=== PATIENT | female | born 1945 | race Caucasian/White ===

== ENCOUNTER 2020-06-18 10:46 | Observation (INO) ==
--- NOTE | 2020-05-17 08:55 | PAT Medication Instructions ---
Medication Instructions Date of Service May 17, 2020 Home Medications aspirin [Aspirin Low Dose] 81 mg PO QAM atorvastatin 40 mg PO QAM enalapril maleate 10 mg PO PM metformin 1,000 mg PO BID acyclovir 400 mg PO BID lenalidomide [Revlimid] 10 mg PO UD ASK your prescriber and surgeon lenalidomide [Revlimid] 10 mg PO UD DO NOT take the morning of surgery metformin 1,000 mg PO BID Take morning of surgery With a small sip of water, OTHERWISE NOTHING TO EAT OR DRINK AFTER MIDNIGHT: aspirin [Aspirin Low Dose] 81 mg PO QAM (unless told otherwise by surgeon) atorvastatin 40 mg PO QAM acyclovir 400 mg PO BID Take evening before surgery enalapril maleate 10 mg PO PM metformin 1,000 mg PO BID acyclovir 400 mg PO BID Other Notes If you have any questions please call us at [phone] or [phone] or [phone] or [phone]
--- NOTE | 2020-05-28 11:54 | Anesthesiology Consultation ---
Date of Service May 28, 2020 Assessment & Plan (1) Encounter for pre-operative examination: COVID Status: As of 05/28 assessment, patient denies travel to endemic area, known exposure/sick contacts, or symptoms of COVID19. Patient instructed that they and their household members must follow strict social distancing guidelines, wear a mask in public and avoid travel/events/gatherings for 14 days prior to surgery. Preoperative COVID19 testing to be completed prior to surgery per surgeon's arrangements (06/14). Patient made aware to self-isolate as much as possible between COVID testing and surgery. BSG AM DOS Chart Review Chart Review: Acceptable Risk for Surgery and Patient seen in Pre Admission Testing Teaching & Discussion Instructed NPO after midnight before surgery, except medications with 15 cc of water. Medication instructions provided according to the PAT guidelines. History Surgery Operation Date: 06/18/20 07:30 Proposed Procedures p Left Total Knee Arthroplasty - Aaron Machado MD Height/Weight Height: 5 ft 8.25 in Weight: 71.5 kg Allergies Allergy/AdvReac Type Severity Reaction Status Date / Time No Known Allergies Allergy Verified 05/02/20 14:28 Medications Home Medications Medication Instructions Recorded Confirmed Last Taken aspirin [Aspirin Low Dose] 81 mg PO QAM 09/30/18 05/02/20 Unknown atorvastatin 40 mg PO QAM 09/30/18 05/02/20 Unknown enalapril maleate 10 mg PO PM 09/30/18 05/02/20 Unknown metformin 1,000 mg PO BID 09/30/18 05/02/20 Unknown acyclovir 400 mg PO BID 05/02/20 05/02/20 Unknown lenalidomide [Revlimid] 10 mg PO UD 05/02/20 05/02/20 Unknown Past Medical History Medical History Diabetes mellitus, type 2 borderline DJD (degenerative joint disease) of knee Hx of cervical cancer s/p cryoablation HX: breast cancer s/p lumpectomy radiation Hyperlipidemia Hypertension Left knee DJD Multiple myeloma Following with [facility] heme/onc, on chemotherapy (Revlimid). Exercise / Class Metabolic Activity II 4-5 Yardwork/Stairs/Walk up hill (Denies CP or SOB with 1 FOS, just knee pain) Past Surgical History Surgical History History of colonoscopy History of cryosurgery For cervical cancer Hx of breast lump removal Hx of section Past Anesthesia History No Hx of Anesthesia Complications and No Family Hx of Anesthesia Complications (other than mother having delerium/psychosis with versed) History of PONV No Hx of PONV and No Hx of Motion Sickness Social History Smoking Status: Former smoker tobacco type: cigarettes Do You Dip or Chew Tobacco: No Smoking End Date: Hx Alcohol Use: Yes Alcohol type: wine alcohol intake frequency: a few times a week Hx Substance Use: No substance use type: does not use Review of Systems Pt denies any recent chest pain, shortness of breath, palpitations, cough, fev er, UR. + occasional reflux Physical Exam Vital Signs BP: 106/66 P: 78bpm SPO2: 98% RA T: 98.1 F R: 16 ENMT Mouth: + dental bridge (lower L front between canine and incisor) and + dental restorations (crowns and bridge); no chipped teeth and no loose teeth Thyromental Distance: > or= 3.5 Finger Breadths Mallampati Class: I Neck normal visual inspection; neck extension not limited Respiratory normal respiratory effort, lungs clear to auscultation Cardiovascular RRR, no murmur, no edema Testing Laboratory Results 05/28/20 12:00 05/28/20 12:00 PT 9.7 Seconds (9.0-12.0) 05/28/20 12:00 INR 1.0 (0.9-1.1) 05/28/20 12:00 APTT 23.4 Seconds (21.0-31.0) 05/28/20 12:00 Hemoglobin A1c 6.9 % (4.5-5.6) H 05/28/20 12:00 Blood Type O Positive 05/28/20 12:00 Antibody Screen NEGATIVE 05/28/20 12:00 Electrocardiogram Date: 05/28/20 Sinus rhythm at 63 bpm with premature atrial complexes. Compared with EKG of 10/04/2018, PACs are now present. Chest X-Ray Date: 05/28/20 Findings: + NAD
[2020-05-28 12:18] LABS: Basophils # (auto) 0.05 K/uL (0-0.2); Basophils % (auto) 1.1 %; Eosinophils # (auto) 0.13 K/uL (0-0.5); Eosinophils % (auto) 2.7 %; Hematocrit (blood only) 40.8 % (37-47); Hemoglobin 13.7 g/dL (12.0-16.0); Immature Granulocytes # (auto) 0.05 K/uL (0.00-0.02); Immature Granulocytes % (auto) 1.1 %; Lymphocytes # (auto) 1.08 K/uL (1.2-3.4); Lymphocytes % (auto) 22.8 %; Mean Corpuscular Hemoglobin 31.4 pg (25-34); Mean Corpuscular Hgb Conc 33.6 g/dL (32-36); Mean Corpuscular Volume 93.6 fL (80-100); Mean Platelet Volume 10.6 fL (7.4-10.4); Monocytes # (auto) 0.26 K/uL (0.11-0.59); Monocytes % (auto) 5.5 %; Neutrophils # (auto) 3.16 K/uL (1.4-6.5); Neutrophils % (auto) 66.8 %; Platelet Count 213 K/uL (130-400); RDW Coefficient of Variation 13.7 % (11.5-14.5); RDW Standard Deviation 47.3 fL (36.4-46.3); Red Blood Count 4.36 M/uL (4.2-5.4); White Blood Count 4.73 K/uL (4.8-10.8)
--- NOTE | 2020-05-28 12:37 | XRay Report ---
XR chest Pre-admission PA/Lat CLINICAL HISTORY: Preoperative chest COMPARISON STUDY: October 04, 2018 FINDINGS: The cardiac and mediastinal contours are normal. There is no evidence of focal pulmonary co nsolidation. There is no evidence of failure. No pleural effusions are visualized.[ IMPRESSION: No active disease in the chest. ACT 112: Negative or not required by law. Electronically signed by: Drake Sabillon M.D. 05/28/2020 12:35 PM
[2020-05-28 12:40] LABS: Partial Thromboplastin Ratio 0.9; Partial Thromboplastin Time 23.4 Seconds (21.0-31.0); Prothrombin Time 9.7 Seconds (9.0-12.0)
[2020-05-28 12:53] LABS: BUN Creatinine Ratio 19.4 (10-20); Calcium 8.8 mg/dl (8.5-10.1); Creatinine Clr Calc Pharmacy 59.3 ml/min; Est GFR (African American) 77.7; Potassium 3.9 mmol/L (3.5-5.1)
--- NOTE | 2020-05-28 14:42 | Electrocardiogram Report ---
Test Reason : Blood Pressure : / mmHG Vent. Rate : 063 BPM Atrial Rate : 063 BPM P-R Int : 142 ms QRS Dur : 086 ms QT Int : 416 ms P-R-T Axes : 086 083 073 degrees QTc Int : 425 ms Sinus rhythm with Premature atrial complexes Otherwise normal ECG When compared with ECG of 04-OCT-2018 12:40, Premature atrial complexes are now Present Confirmed by Vinicio Perez ([id number]) on 05/28/2020 2:42:38 PM Referred By: Aaron Machado Confirmed By:Vinicio Perez
[2020-05-29 06:07] LABS: Estimated Average Glucose 151 mg/dl; Hemoglobin A1C 6.9 % (4.5-5.6)
[~2020-06-18 10:46] MED LIST: ACETAMINOPHEN 500 MG TAB PO SCH; BUPIVACAINE 0.5 % 5 MG/1 ML MPF 30ML VIAL ONE; BUPIVACAINE 0.5 % 5 MG/1 ML PF 10ML VIAL ONE; BUPIVACAINE LIPOSOME/PF 266 MG, BUPIVACAINE/EPINEPHRINE 50 ML, SODIUM CHLORIDE 0.9% 30 ... INFIL SCH; FAMOTIDINE 20 MG TAB PO SCH; GABAPENTIN 300 MG CAP PO SCH; LR 500ML BOLUS, THEN 15ML/HR IV SCH; LR 60ML/HR IV SCH; METOCLOPRAMIDE HCL 10 MG TABLET PO SCH; TRANEXAMIC ACID 1,000 MG **IV Intra-op IV SCH; ceFAZolin 2000MG 2,000 MG/15 ML SYR IV SCH
--- NOTE | 2020-06-18 11:10 | History & Physical Bridge Note ---
Date of Service June 18, 2020 History & Physical Bridge Note I have examined the patient, reviewed the History & Physical and in the interval since the performance of the History & Physical I have noted the following changes of clinical significance: no changes noted
[2020-06-18] MEDS ORDERED: LIDOCAINE HCL 2% 2 ML VIAL/AMP(20MG/ML) INFIL ONE (11:47)
[2020-06-18] MEDS ORDERED: ONDANSETRON INJ 2 MG/ML 2 ML VIAL ONE (11:47)
[2020-06-18] MEDS ORDERED: GLYCOPYRROLATE 0.2 MG/ML VIAL ONE (11:47)
[2020-06-18] MEDS ORDERED: PROPOFOL IV EMULSION 10 MG/ML 20 ML VIAL IV ONE ×2 (11:47→14:47)
[2020-06-18] MEDS ORDERED: MIDAZOLAM HCL 1 MG/ML 2ML VIAL ONE (11:47)
[2020-06-18] MEDS ORDERED: KETAMINE 50 MG/5 ML SYRINGE ONE (11:48)
[2020-06-18] MEDS ORDERED: ePHEDrine sulfate 50 MG/ML AMP IV PRN (12:11)
[2020-06-18] MEDS ORDERED: ATROPINE SULFATE 0.1 MG/ML 10ML SYR IV PRN (12:11)
[2020-06-18] MEDS ORDERED: ONDANSETRON INJ 2 MG/ML 2 ML VIAL IV PRN ×2 (12:11→17:31)
[2020-06-18] MEDS ORDERED: fentaNYL citrate 100 MCG/2 ML VIAL IV PRN (12:11)
[2020-06-18] MEDS ORDERED: EPINEPHrine INJ 1 MG/ML AMP ONE (13:09)
[2020-06-18] MEDS ORDERED: BUPIVACAINE 0.25% 30 ML VIAL ONE (13:09)
[2020-06-18] MEDS ORDERED: BUPIVACAINE LIPOSOME 1.3% 266 MG/20 ML VIAL ONE (13:09)
[2020-06-18] MEDS ORDERED: SODIUM CHLORIDE 0.9% PF 50 ML VIAL ONE (13:10)
[2020-06-18] MEDS ORDERED: BUPIVACAINE 0.5 % 5 MG/1 ML PF 10ML VIAL ONE (13:31)
[2020-06-18] MEDS ORDERED: VANCOMYCIN HCL 1000MG/20ML VIAL ONE (13:39)
--- NOTE | 2020-06-18 15:36 | Operative Report ---
Post Operative Report Pre & Post Diagnosis Operation Date: 06/18/20 12:45 Pre-Op Diagnosis: Left Knee Degenerative Joint Disease Post-Op Diagnosis: Left Knee Degenerative Joint Disease I identified the patient and participated in the time-out.: Yes Procedure Operation Date: 06/18/20 12:45 Actual Procedures p Left Total Knee Arthroplasty(Left) - Aaron Machado MD Surgeon Aaron Machado MD Tool Profiling Machine Set Up Operator PHILIP Mathews Estimated Blood Loss 50 Findings Consistent with Post-Op Diagnosis Operative findings real advanced left knee DJD. She had extensive grade 4 [id number] disease in the medial compartment with large osteophytes medially. Some moderate patellofemoral disease. The lateral compartments pretty well spared. She did have a significant flexion contracture preoperatively about 10 to 15 degrees. Large knee joint effusion. Fluids 1700 cc Specimens Left knee sent for pathology. Drains None. Anesthesia Type Spinal MAC Complications none Disposition Accompanied Patient To Recovery: No Disposition: Recovery Room Indications Patient is a 74-year-old female with a long history of a left knee pain discomfort describes gotten worse over time. She failed conservative measures. She was actually scheduled for knee replacement a year ago but had to cancel as she was diagnosed with multiple myeloma. She is now been treated for this in remission. She is elected proceed with total knee arthroplasty. Description of Procedure Operative implants consist of: 1. Biomet Vanguard size 62.5 left posterior stabilized femoral component. 2. Biomet size 71 tibial tray. 3. 12 mm posterior stabilized polyethylene insert. 4. 28 x 8 all polypatella. The patient was taken to the operating room, identified, and placed on the operating table supine position but all contact areas were properly padded. IV antibiotics tried by anesthesia team. A spinal anesthetic and abductor canal block had provided holding area. Nelson catheter was placed in sterile fashion. Left thigh tourniquet was then placed in the left lower extremities and prepped and draped in usual sterile fashion. Left leg was elevated exsanguinated with use of an Esmarch and tourniquet placed at 3 mmHg. An anterior approach to the left knee was then performed through longitudinal incision centered over the patella. Sharp dissection got through subcutaneous tissue down the extensor mechanism. Medial parapatellar arthrotomy incision was made. Some subperiosteal dissection was carried out medially. The fat pad was resected from each patella tendon. Lateral patellofemoral ligament was released. Patella was subluxated laterally and the knee was flexed. The osteophytes were taken off distal femur. The ACL and PCL were then released from distal femur and the tibia subluxated anteriorly. External tibial alignment jig was then placed in the interface the tibia and adjusted 14 mm medially. Proximal tibial cut was made to move out 2 to 3 mm of bone from most efficient aspect medial till plateau. Some osteophytes taken off medial and posterior medially. I did release some the posterior medial side in order to decrease her flexion contracture. The tibia was then sized to a size 71. Attention drawn the femur. The distal femur was entered with a sharp drop with intramedullary canal was suction. A left 5 degree valgus cutting guide was placed in the distal femoral cutting block was pinned in place. Distal femoral cut was made to take an additional 3 mm of bone off distal femur. The femur was then sized to a size 62.5. The AP cutting block was pinned parallel to the epicondylar axis which was 5 degrees of external rotation. The anterior cut, anterior chamfer, posterior cut, posterior chamfer cuts were made. The box cutting guide was placed in just slight lateral box cut was made. The knee was flexed. The remnants of the medial lateral menisci were excised. The osteophyte taken off the posterior aspect the femur. A trial femoral component was placed. Tibial tray was pinned in maximum external rotation and the drill and stem punch used to create defect in proximal tibia for the tibial tray. Knee was then trialed and the 12 mm insert fit most appropriately. I left this just a little bit loose as I wanted to make sure she got full extension. Attention drawn the patella. Patella was cleaned of all soft tissue. Patella thickness measured 18 mm and cut down to 12. Sized to a size 28 patella. The lug holes were drilled for the 28 patella. The lateral osteophyte was removed. Patella button was placed. Knee was taken through range of motion patella tracked nicely with no thumbs test. Attention drawn to placing permanent components. All trial components were removed. Bone plug was placed in the distal femur limit blood loss put a double batch [place] G cement was mixed. I did add an ad ditional gram of vancomycin to her cement due to her immunocompromise status due to her treatment for multiple myeloma. A [employer] size 62.5 posterior stabilized femoral component, size 71 tibial tray, 12 mm posterior stabilized polyethylene insert, 28 x 8 all polypatella then cemented in place. Knee was brought out into full extension total cement hardened. Final cement check was then performed. Pericapsular tissues were injected with total 100 cc of combination of 20 cc of Exparel, 30 cc normal saline, 50 cc of quarter percent Marcaine with epinephrine. Patient did receive 1 g tranexamic acid. The tourniquet was then let down for total tourniquet time of 60 minutes. Hemostasis assured use electrocautery. The extensor mechanism closed with combination of #1 PDS suture #1 Vicryl suture in [id number] fashion. Extensor mechanism checked found to be intact the subcutaneous tissue was then closed with 2 Dexon suture in a buried interrupted fashion skin was closed skin triny. Leg was then cleaned dried a sterile dressing was Xeroform, 4 x 4's, sterile cast padding, Clifford bandage were applied. Patient then transferred to the recovery in stable condition. Patient tolerated procedure well and there are no complications. Nehemiah Mathews, my physician bilingual office assistant, was present for the entire procedure. His assistance was essential and required for appropriate patient positioning, prepping and draping, surgical exposure, performing the technical details of the operation, placement the implants, closure of the wound, and placement of the sterile bandage. I attest to the content of the Intraoperative Record and any orders documented therein. Any exceptions are noted below.
--- NOTE | 2020-06-18 15:44 | XRay Report ---
LEFT KNEE 2 VIEWS History: Left total knee arthroplasty. Degenerative arthritis. Postop. FINDINGS: The patient is status post a left total knee arthroplasty. The hardware is intact. No fract ure or dislocation. Skin triny are in place. IMPRESSION: Left total knee arthroplasty. No evidence for hardware complication. ACT 112: Negative or not required by law. Electronically signed by: Margarito Short M.D. 06/18/2020 3:43 PM
--- NOTE | 2020-06-18 16:13 | Anesthesiology Progress Note ---
Date of Service June 18, 2020 Anesthesia Post Procedure Vital Signs Vital Signs: Temp Pulse Pulse Resp BP Pulse Ox 06/18/20 16:05 67 12 119/62 95 06/18/20 15:55 65 14 115/62 95 06/18/20 15:45 69 14 101/77 96 06/18/20 15:35 71 20 103/56 L 96 06/18/20 15:29 36.9 C 83 12 106/54 L 96 06/18/20 11:38 36.5 C 69 18 130/69 98 Transfer of Care Handoff Completed per policy Notes Mental Status: alert / awake / arousable Patient Amnestic to Procedure: Yes Nausea / Vomiting: adequately controlled Pain: adequately controlled Airway Patency, RR, SpO2: stable & adequate BP & HR: stable & adequate Hydration State: stable & adequate Neuraxial Anesthesia: was administered and sensory block is resolving Anesthetic Complications: no major complications apparent and Pt Satisfied with anesthetic care
[2020-06-18] MEDS ORDERED: GLUCOSE 10 TABS/TUBE PO PRN (17:31)
[2020-06-18] MEDS ORDERED: CARBOHYDRATES FOR HYPOGLYCEMIA PO PRN (17:31)
[2020-06-18] MEDS ORDERED: METOCLOPRAMIDE HCL INJ 5 MG/ML 2 ML VIAL IV PRN (17:31)
[2020-06-18] MEDS ORDERED: GLUCAGON FOR INJ 1 MG VIAL SQ PRN (17:31)
[2020-06-18] MEDS ORDERED: traMADol HCL 50 MG TABLET PO PRN (17:31)
[2020-06-18] MEDS ORDERED: HYDROmorphone INJ 0.5 MG/0.5 ML SYR IV PRN (17:31)
[2020-06-18] MEDS ORDERED: DEXTROSE 50% 50 ML SYRINGE IV PRN (17:31)
[2020-06-18] MEDS ORDERED: ALUMINUM/MAGNESIUM SUSP 30 ML UDC PO PRN (17:31)
[2020-06-18] MEDS ORDERED: MAGNESIUM HYDROXIDE SUSP 30 ML UDC PO PRN (17:31)
[2020-06-18] MEDS ORDERED: NALOXONE HCL 0.4 MG/1 ML VIAL/CARP IV PRN (17:31)
[2020-06-18] MEDS ORDERED: bisacodyL 10 MG SUPP PR PRN (17:31)
[2020-06-18] MEDS ORDERED: GLUCOSE 40% GEL 15 GM TUBE PO PRN (17:31)
[2020-06-18] MEDS ORDERED: PHARMACY GLYCEMIC MGMT CONSULT PRN (17:37)
--- NOTE | 2020-06-18 17:42 | Pharmacy Report ---
Glycemic Ortho Sign Off Note - Date of Service June 18, 2020 - Scope Glycemic Pharmacist consulted for glycemic control and to write orders per [facility] inpatient glycemic control protocol. - Objective Accuchecks BSG (last 24hrs):: 06/18/20 06/18/20 11:25 15:30 POC Glucose 122 H 94 HbA1c:: Hemoglobin A1c 6.9 % (4.5-5.6) H 05/28/20 12:00 - Assessment * Pt is maintained on oral antidiabeticagent[s]as anoutpatient with excellent control per recent A1c * Oral agents are not recommended for inpatient use d/t drug interactions, changing PO intake, and difficulty titrating for acute hyper/hypoglycemia. * Recommended regimen for inpatient use is SQ insulin * Low stress weight based insulin dosing appropriate since patient has minimal risk factors for insulin resistance (i.e. no steroids). * Appropriate to DC insulin and resume outpatient antidiabetic regimen at discharge * Goal is to maintain BSGs <200 mg/dl (ideally <150 mg/dl) to prevent post op c omplications - Plan For Inpatient Glycemic Control * Basal insulin * Not needed based on A1c, pre-op BSGs, and minimal risk factors for insulin resistance * Bolus insulin * Utilize low stress weight based NovoLog parameters per scale ACHS * Pharmacy has entered glycemic orders and is signing off of the glycemic consult. We will no longer be making adjustments to inpatient regimen. Please feel free to re-consult if needed. Thank you.
[2020-06-18] MEDS: SODIUM CHLORIDE 0.9% 1000ML 1,000 ML IV SCH (19:56)
[2020-06-18] MEDS: KETOROLAC TROMETHAMINE 15 MG/ML VIAL IV SCH (21:11)
[2020-06-18] MEDS: ASPIRIN 81 MG ECTAB PO SCH (21:17)
[2020-06-18] MEDS: ENALAPRIL MALEATE 10 MG TAB PO SCH (21:17)
[2020-06-18] MEDS: FERROUS GLUCONATE 324 MG TAB PO SCH (21:17)
[2020-06-18] MEDS: ACYCLOVIR 400 MG TAB PO SCH (21:17)
[2020-06-18] MEDS: ASCORBIC ACID 500 MG TAB PO SCH (21:17)
[2020-06-18] MEDS: DOCUSATE SODIUM 100 MG CAP PO SCH (21:17)
[2020-06-18] MEDS: SENNA 8.6 MG TAB PO SCH (21:18)
[2020-06-18] MEDS: ACETAMINOPHEN 500 MG TAB PO SCH (21:19)
[2020-06-18] MEDS: ceFAZolin 1000MG 1,000 MG/7.5 ML SYR IV SCH (21:22)
[2020-06-18] MEDS ORDERED: TRANEXAMIC ACID / 0.7% NACL 1,000 MG/100 ML BAG IV SCH (21:30)
[2020-06-18] MEDS: INSULIN ASPART 100 UNITS/ML 3 ML PEN SC SCH (21:36)
[2020-06-19] MEDS: KETOROLAC TROMETHAMINE 15 MG/ML VIAL IV SCH ×5 (02:40→23:46)
[2020-06-19] MEDS: ACETAMINOPHEN 500 MG TAB PO SCH ×3 (05:28→21:17)
[2020-06-19] MEDS: ceFAZolin 1000MG 1,000 MG/7.5 ML SYR IV SCH (05:28)
[2020-06-19] MEDS: SODIUM CHLORIDE 0.9% 1000ML 1,000 ML IV SCH (05:32)
[2020-06-19 06:34] LABS: Hematocrit (blood only) 32.9 % (37-47); Hemoglobin 11.1 g/dL (12.0-16.0); Mean Corpuscular Hemoglobin 31.5 pg (25-34); Mean Corpuscular Hgb Conc 33.7 g/dL (32-36); Mean Corpuscular Volume 93.5 fL (80-100); Mean Platelet Volume 10.2 fL (7.4-10.4); Platelet Count 164 K/uL (130-400); RDW Coefficient of Variation 13.9 % (11.5-14.5); RDW Standard Deviation 47.5 fL (36.4-46.3); Red Blood Count 3.52 M/uL (4.2-5.4); White Blood Count 5.09 K/uL (4.8-10.8)
[2020-06-19 07:09] LABS: BUN Creatinine Ratio 15.3 (10-20); Calcium 7.9 mg/dl (8.5-10.1); Creatinine Clr Calc Pharmacy 72.9 ml/min; Est GFR (African American) 99.6; Potassium 3.8 mmol/L (3.5-5.1)
[2020-06-19] MEDS: MULTIVITAMIN TAB PO SCH (08:01)
[2020-06-19] MEDS: ASCORBIC ACID 500 MG TAB PO SCH ×2 (08:01→17:36)
[2020-06-19] MEDS: FERROUS GLUCONATE 324 MG TAB PO SCH ×2 (08:01→17:36)
[2020-06-19] MEDS: ACYCLOVIR 400 MG TAB PO SCH ×2 (08:02→20:32)
[2020-06-19] MEDS: ASPIRIN 81 MG ECTAB PO SCH ×2 (08:02→20:33)
[2020-06-19] MEDS: ATORVASTATIN 40 MG TAB PO SCH (08:02)
[2020-06-19] MEDS: DOCUSATE SODIUM 100 MG CAP PO SCH ×2 (08:03→20:33)
[2020-06-19] MEDS: INSULIN ASPART 100 UNITS/ML 3 ML PEN SC SCH ×4 (08:26→21:09)
[2020-06-19] MEDS ORDERED: NON-FORMULARY MEDICATION (Calcium 250 mg Tablet) PO SCH (09:00)
[2020-06-19] MEDS ORDERED: MULTIVITAMIN TAB PO SCH (09:00)
--- NOTE | 2020-06-19 09:14 | Progress Notes ---
DATE: 06/19/2020 SUBJECTIVE: A 74-year-old female postop day 1 from a left knee replacement. She is doing pretty well. Not having as much pain as she would expect. No chest pain or shortness of breath. Not feeling dizzy or lightheaded. OBJECTIVE: VITAL SIGNS: Temperature 36.6. Vital signs stable. GENERAL: Shows a pleasant elderly female. She is sitting up in bed and working on her computer and looks comfortable. LUNGS: Clear to auscultation. HEART: Regular rate and rhythm. ABDOMEN: Soft, nontender, nondistended. EXTREMITIES: Grossly neurovascularly intact except as follows: Examination of the left leg reveals the dressing to be clean, dry and intact. The leg is well aligned. She can dorsiflex and plantarflex her foot appropriately. She is neurologically intact. LABORATORY DATA: Hemoglobin 11.1. Hematocrit 32.9. Electrolytes are stable. ASSESSMENT: A 74-year-old white female postop day 1 from left knee replacement, doing pretty well. Pain is controlled. She is neurologically intact. PLAN: 1. DVT prophylaxis including thigh-high TEDs, SCDs, and aspirin twice a day. 2. PT/OT. Weight bear as tolerated. Left total knee protocol. 3. Pain control, doing okay with current pain regimen. 4. Disposition: She is hoping to go to rehab as she lives with relatives who is not able to help her. She will certainly need some assistance postoperatively. We will look into a rehab versus detention.
[2020-06-19] MEDS: SENNA 8.6 MG TAB PO SCH (21:11)
[2020-06-19] MEDS: ENALAPRIL MALEATE 10 MG TAB PO SCH (21:16)
[2020-06-20] MEDS: ACETAMINOPHEN 500 MG TAB PO SCH ×2 (05:14→13:28)
[2020-06-20] MEDS: KETOROLAC TROMETHAMINE 15 MG/ML VIAL IV SCH ×2 (05:14→12:37)
[2020-06-20] MEDS: MULTIVITAMIN TAB PO SCH (07:41)
[2020-06-20] MEDS: ASPIRIN 81 MG ECTAB PO SCH (07:42)
[2020-06-20] MEDS: ACYCLOVIR 400 MG TAB PO SCH (07:42)
[2020-06-20] MEDS: ATORVASTATIN 40 MG TAB PO SCH (07:42)
[2020-06-20] MEDS: INSULIN ASPART 100 UNITS/ML 3 ML PEN SC SCH ×2 (07:43→12:35)
[2020-06-20] MEDS: ASCORBIC ACID 500 MG TAB PO SCH (08:52)
[2020-06-20] MEDS: DOCUSATE SODIUM 100 MG CAP PO SCH (08:52)
[2020-06-20] MEDS: FERROUS GLUCONATE 324 MG TAB PO SCH (08:52)
--- NOTE | 2020-06-20 20:48 | Progress Notes ---
DATE: 06/20/2020 SUBJECTIVE: Postop day 2 from a left knee replacement. HISTORY OF PRESENT ILLNESS: The patient is a 74-year-old female now postop day 2 from a left knee replacement. She has a little bit more pain and discomfort and difficulty lifting her leg today compared to yesterday. Pain is still manageable. No chest pain or shortness of breath. Not feeling dizzy or lightheaded. OBJECTIVE: VITAL SIGNS: Temperature 36.7. Vital signs are stable. GENERAL: Shows a pleasant elderly female. She was in the bathroom earlier this morning and walked out to her bedside quite well. EXTREMITIES: Examination of the left knee reveals the dressing to be clean, dry and intact. Leg is well aligned. No significant drainage. Calf is soft and supple. She is neurologically intact. ASSESSMENT: A 74-year-old female postoperative day 2 from a left knee replacement, doing pretty well. Had a little bit more pain today and a little bit more swelling, and therefore, less able to move her leg as well. Nothing out of the ordinary. PLAN: 1. DVT prophylaxis including thigh-high TEDs, SCDs, and aspirin twice a day. 2. PT/OT. She can weightbear as tolerated in the left lower extremity. 3. Pain control, doing okay with current pain regimen. 4. Disposition: She is going to be discharged to either rehab or snf facility today. Social service has been working on that. We will see if she can get approved for discharge today.
--- NOTE | 2020-06-22 15:48 | Discharge Summary ---
Date of Service June 22, 2020 Discharge Data Procedures Performed Operation Date: 06/18/20 12:45 Actual Procedures p Left Total Knee Arthroplasty(Left) - Aaron Machado MD Hospital Course (1) Status post total left knee replacement: This patient is a 74 year old female admitted on 06/18/20 and underwent total knee arthroplasty. She tolerated the procedure well and there were no complications. Transferred to the PACU post op and later to the orthopedic floor for further care. SHe was given ancef for antibiotic prophylaxis. She was also given SCOTT stockings, SCDs, and aspirin for DVT prophylaxis. Hemoglobin, hematocrit, and vital signs were monitored during her hospital stay and remained stable. Did not require any blood transfusions. There were no complications du ring her hospital stay. By post op day #2 the patient was tolerating a diabetic diet, pain was reasonably controlled with oral pain medicine, and she was participating in physical therapy. On post op day #2 the patient was discharged to [facility]. SHe was given printed discharge instructions including prescriptions for extra strength tylenol, aspirin, and tramadol. Continue physic al therapy, weight bearing as tolerated. Continue SCOTT stockings. Follow up approximately 2 weeks post op or sooner if there are problems or concerns. Coding Level of Care Code None Diagnoses Status post total left knee replacement Z96.652
== END 2020-06-20 15:53 ==
LOC: ASU 10:46 → 3E 10:46